=== PATIENT | female | born 1975 | race Caucasian/White ===

== ENCOUNTER 2016-06-19 09:23 | Day surgery (SDC) | payer BC ==
[2016-06-19] MEDS ORDERED: D5 LR 1000 ML 1,000 ML IV ONE (11:09)
[2016-06-19] MEDS ORDERED: DIPRIVAN VIAL 20 ML ONE (12:11)
[2016-06-19 13:48] VITALS: BP 105/60
== END 2016-06-19 12:45 | disposition home or self-care (01) | DRG 392 ==
LOC: SURG1 09:23
PROVIDERS: ATTEND Internal Medicine Gastroenterology
PROC: 0DJ08ZZ Inspection of Upper Intestinal Tract, Via Natural or Artificial Opening Endoscopic (ICD-10-PCS; principal; 2016-06-19 12:00)
PROC: 0DB68ZX Excision of Stomach, Via Natural or Artificial Opening Endoscopic, Diagnostic (ICD-10-PCS; principal; 2016-06-19 12:00)
PROC: 0DB88ZX Excision of Small Intestine, Via Natural or Artificial Opening Endoscopic, Diagnostic (ICD-10-PCS; principal; 2016-06-19 12:00)
PROC: 0DB38ZX Excision of Lower Esophagus, Via Natural or Artificial Opening Endoscopic, Diagnostic (ICD-10-PCS; principal; 2016-06-19 12:00)
DX: R13.19 Other dysphagia (principal); R10.11 Right upper quadrant pain; R10.13 Epigastric pain; K21.9 Gastro-esophageal reflux disease without esophagitis; K25.9 Gastric ulcer, unspecified as acute or chronic, without hemorrhage or perforation; K29.60 Other gastritis without bleeding; K22.2 Esophageal obstruction; K22.4 Dyskinesia of esophagus
CPT/HCPCS: A4217; J3490; J7120